=== PATIENT | female | born 1935 | race Caucasian/White ===

== ENCOUNTER 2020-12-21 12:55 | Outpatient (RCR) | payer SELFPAY | END 2021-03-21 23:59 | disposition home or self-care (01) | LOC: ANHAUDASC 12:55 | DX: Z46.1 Encounter for fitting and adjustment of hearing aid (principal) | CPT/HCPCS: V5264 ==

== ENCOUNTER 2021-04-08 13:59 | Outpatient (RCR) | payer SELFPAY | END 2021-04-08 23:59 | disposition home or self-care (01) | LOC: ANHAUDIO 13:59 | DX: Z46.1 Encounter for fitting and adjustment of hearing aid (principal) | CPT/HCPCS: 99199 ==

== ENCOUNTER 2022-02-07 13:51 | Outpatient (CLI) | payer MEDICARE, SELFPAY | END 2022-02-07 13:52 | disposition home or self-care (01) | LOC: ANHAUDASC 13:53 | DX: Z01.10 Encounter for examination of ears and hearing without abnormal findings (principal); H90.3 Sensorineural hearing loss, bilateral | CPT/HCPCS: 92557; 92567 ==

== ENCOUNTER 2022-04-21 13:00 | Outpatient (RCR) | payer MEDICARE, SELFPAY | END 2022-05-08 23:59 | disposition home or self-care (01) | LOC: ANHAUDASC 13:00 | DX: Z46.1 Encounter for fitting and adjustment of hearing aid (principal) | CPT/HCPCS: 99199; V5261; V5264 ==

== ENCOUNTER 2024-05-27 12:59 | Outpatient (CLI) | payer MEDICARE, SELFPAY | END 2024-05-27 13:00 | disposition home or self-care (01) | LOC: ANHAUDASC 13:00 | DX: H90.3 Sensorineural hearing loss, bilateral (principal) | CPT/HCPCS: 92557; 92567 ==

== ENCOUNTER 2024-08-29 13:00 | Outpatient (RCR) | payer SELFPAY | END 2024-11-17 23:59 | disposition home or self-care (01) | LOC: ANHAUDASC 13:00 | DX: Z46.1 Encounter for fitting and adjustment of hearing aid (principal) | CPT/HCPCS: 99199; V5257; V5264 ==